=== PATIENT | female | born 1985 | race Caucasian/White ===

== ENCOUNTER 2018-06-29 10:22 | Inpatient (IN) ==
[2018-06-29 11:06] LABS: Bilirubin,Urine Negative (Negative); Blood,Urine Negative (Negative); Color,Urine Yellow (Yellow); Glucose,Urine (UA) Normal (Normal); Ketones,Urine Negative (Negative); Leukocyte Esterase,Urine Moderate (Negative); Nitrite,Urine Negative (Negative); PH,Urine 6.5 pH Units (5.0-8.0); Protein,Urine Negative (Neg-Trace); Specific Gravity,Urine 1.011 (1.010-1.025); Urobilinogen,Urine Normal (Normal)
[2018-06-29 11:08] LABS: Bacteria,Urine Moderate per hpf (None-Few); Hyaline Casts,Urine None Seen per lpf (None-Few); Squamous Epithelial Cell,Urine Many per lpf (None-Few)
[2018-06-29 11:09] LABS: Clarity,Urine Slightly Hazy (Clear)
[2018-06-29 11:14] LABS: Protein/Creatinine Ratio,Urine 0.24 mg/mg (0.00-0.20)
[2018-06-29 11:15] LABS: Amphetamine Screen,Urine Negative ng/mL (Cutoff=1000); Barbiturate Screen,Urine Negative ng/mL (Cutoff=200); Benzodiazepines Screen,Urine Negative ng/mL (Cutoff=200); Cannabinoid Screen,Urine Negative ng/mL (Cutoff = 50); Cocaine Screen,Urine Negative ng/mL (Cutoff= 300); Opiate Screen,Urine Negative ng/mL (Cutoff=300); Phencyclidine Screen,Urine Negative ng/mL (Cutoff=25)
[2018-06-29 11:55] LABS: Basophils % 0.3 %; Eosinophils % 0.4 %; Hematocrit 33.8 % (35.3-44.9); Hemoglobin 11.3 g/dL (11.5-15.4); Immature Granulocytes % 0.4 % (0-4); Lymphocytes # 1.2 K/mcL (0.6-4.6); Lymphocytes % 16.4 %; Mean Corpuscular HGB Conc 33.4 g/dL (31.6-35.5); Mean Corpuscular Hemoglobin 29.8 pg (28.0-33.3); Mean Corpuscular Volume 89.2 fL (83.0-100.0); Mean Platelet Volume 10.9 fL (9.4-12.4); Monocytes # 0.5 K/mcL (0.0-1.3); Monocytes % 6.3 %; Neutrophils # 5.7 K/mcL (1.6-8.9); Platelet Count 159 K/mcL (140-400); Red Blood Count 3.79 M/mcL (3.82-4.97); Red Cell Distribution Width 15.3 % (11.5-14.5); Segmented Neutrophils % 76.2 %
[2018-06-29 12:06] LABS: Alanine Aminotransferase 12 Units/L (7-52); Aspartate Amino Transferase 21 Units/L (13-39); BUN/Creatinine Ratio 19 (6-26); Blood Urea Nitrogen 11 mg/dL (6-20); Lactate Dehydrogenase 173 Units/L (140-271); Uric Acid 4.2 mg/dL (2.3-7.6); eGFR For Non-African Americans > 60 (> 60)
[2018-06-29] MEDS ORDERED: Famotidine 20 MG/2 ML VIAL IVP PRN (13:58)
[2018-06-29] MEDS ORDERED: Ondansetron 4 MG/2 ML VIAL IVP PRN (13:58)
[2018-06-29] MEDS ORDERED: *HR* Nalbuphine 10 MG/ML AMPUL IVP PRN (13:58)
[2018-06-29] MEDS ORDERED: Naloxone 0.4 MG/ML INJ IVP PRN (13:58)
[2018-06-29] MEDS ORDERED: Metoclopramide 10 MG/2 ML VIAL IVP PRN (13:58)
[2018-06-29] MEDS ORDERED: Oxytocin 20 units/ LR 1000 mL 20 UNIT/1,000 ML BAG IVC SCH ×2 (14:00→23:21)
[2018-06-29] MEDS ORDERED: Ringers Solution, Lactated 1,000 ML IVC SCH (14:00)
[2018-06-29] MEDS ORDERED: Acetaminophen 325 MG TABLET PO PRN ×2 (15:15→23:21)
--- NOTE | 2018-06-29 17:44 | Anesthesia Evaluation PreOp ---
Date of Encounter: 06/29/18 Time of Encounter: 17:42 - Past History Planned Operation: DEEP Cardiac History: Denies any Significant Hx Pulmonary History: Denies Any Significant HX MONEY ROOM TELLER History: Denies Any Significant HX Other Medical History: Other (Urinary Retention post delivery with epidurals) Anesthesia History: No Prior Anesthetic Complications, Past Anesthesia : Yes Alcohol Use: none Drug use: none Medications and Allergies Ferrous Sulfate [Iron] 1 tab PO DAILY 06/29/18 [History] Vitamin Tablet 1 tab PO DAILY 06/29/18 [History] Allergy/AdvReac Type Severity Reaction Status Date / Time pistachio nut AdvReac Nausea Verified 06/29/18 14:48 - Meds/Allergy Pre-op Review Medications Reviewed: Yes Allergies Reviewed: Yes Beta Blockers on Current Med List: No Anesthesia Results - Labs 06/29/18 11:00 06/29/18 11:00 Anesthesia Exam O2 Sat Height 1.7 m Weight 75.9 kg Vital Signs Temp 98.5 F 06/29/18 11:00 NPO (# of Hours): 4 Pain Scale: 1 Pain Scale Used: Numeric (1 - 10) - HEENT Pupil (Motor): Pupils equal Mallampati: II Teeth: Normal Oral Opening: Greater than 3 - MONEY ROOM TELLER LOC: Oriented MONEY ROOM TELLER Motor: Normal RUE, Normal LUE, Normal RLE, Normal LLE, Normal Face MONEY ROOM TELLER Sensory: Normal: RUE, LUE, RLE, LLE, Face - Cardiac Rhythm: Regular Murmur: None JVD: No Carotid Bruit: No - Pulmonary Breath Sounds: bilateral Clear Respiratory Effort: Symmetrical Anesthesia Assess/Plan ASA Score: 2 Level of consciousness: Cooperative, Oriented Anesthetic Plan: General, Epidural Autologous Blood: Yes Monitoring Plan: Standard Monitors
[2018-06-29] MEDS ORDERED: Epidural Premix (fent/bupiv) 110 ML EP SCH (17:45)
--- NOTE | 2018-06-29 18:10 | OB/GYN History & Physical ---
Date of Encounter: 06/29/18 Time of Encounter: 12:15 Assessment and Plan (1) 38 weeks gestation of Current visit: Yes Status: Acute (2) Intrauterine Current visit: Yes Status: Acute (3) Intact amniotic membranes during in third trimester Current visit: Yes Status: Acute (4) Mild pre-eclampsia affecting fourth Current visit: Yes Status: Acute Admit to labor and delivery for induction of labor secondary to mild preeclampsia at term Double Mon balloon with 60 mL in each balloon will be placed Start Pitocin and increased per protocol to adequate labor pattern Labs-CBC and clot to hold Continuous electronic monitoring Pain management plan is unknown-states she has had epidurals with her previous 3 deliveries but had problems urinating during the period so she would like to try with no epidural this labor Anticipate vaginal delivery Dr. Chen is the OB on-call and was consulted for the plan for admission (5) Type A blood, Rh negative Current visit: Yes Status: Acute Cord blood will be collected at delivery (6) NST (non-stress test) reactive Current visit: Yes Status: Acute History of Present Illness Chief complaint: mild pre-e HPI: Ms. Hanley is a 32 year old female at 38 weeks 4 days gestation with an estimated date of of 07/09/18 dated by LMP. She presents today for preeclampsia evaluation. She had severe range blood pressures in the office today of 160s over 90s. Throughout her triage and labor and delivery she ran mild range 140s to 150s over 90s to low 100s. She had a negative lab workup. About an hour prior to discharge she developed a headache and blurry vision. After consultation with Dr. Chen and was decided she should be admitted for induction secondary to mild preeclampsia at term. She is followed by Dr. Huston throughout her . records are available electronically and have been reviewed. Labs: A- GBS- Hep B- HIV- T. Palladium- GC/CL- Rubella immune Varicella immune Past Med Surg Social Fam HX - Past Medical History Medical history: other Additional medical history: bladder retention after all past Psychiatric history: no psych history - Past Surgical History Additional surgical history: breast augmentation - Social History Smoking Status: Never smoker Smokeless Tobacco Status: No Alcohol use: none Drug use: none - Family History Mother Living Status: Still Living Hx Family Cardiac Disorders: No Hx Family Respiratory Disorders: No Hx Family Cancer: No Hx Family GI Disorders: No Hx Family Genitourinary Disorders: No Hx Family Endocrine Disorder: No Hx Family Musculoskeletal Disorders: No Hx Family Neuromuscular Disorders: No Hx Family Neurologic Disorders: No Hx Family HEENT Disorders: No Hx Family Autoimmune Disorders: No Hx Family Reproductive Disorders: No Hx Family Psychosocial Disorders: No Hx Family Medical Disorders: No Obstetrical History - Pregnancies : 4 Para: 3 Term: 3 (# 1: full term, vaginal delivery [facility] female 6lbs 13oz.; # 2: normal spontaneous vaginal delivery (), [facility], 3-20-10 Female 7lbs 12oz.; # 3 03/30/2013, VAGINAL, FEMALE, 7#2.) : 0 Ab's: 0 Livin Medications and Allergies Ferrous Sulfate [Iron] 1 tab PO DAILY 06/29/18 [History] Vitamin Tablet 1 tab PO DAILY 06/29/18 [History] Allergy/AdvReac Type Severity Reaction Status Date / Time pistachio nut AdvReac Nausea Verified 06/29/18 14:48 Review of System OB All systems PM: reviewed and no additional remarkable complaints except as stated Exam - Vital Signs Vital signs: Initial Vital Signs Temp 98.5 F 06/29/18 11:00 - Constitutional Constitutional: well developed, well nourished, no acute distress, average body habitus - HEENT HEENT: Normocephaly, Mucus Membranes Moist - Neck Neck exam: full ROM - Lungs Respiratory exam: CTAB - Cardiovascular Cardiovascular exam: RRR, +S1, +S2 - Breasts Breast: bilateral: normal - Abdomen Abdomen: Present: bowel sounds normal, gravid, non tender - Extremities Extremities exam: full ROM, normal capillary refill, normal inspection, radial pulses palpable and symmetrical - Vulva Vulva: bilateral: normal - Vagina Vagina: Present: normal moisture - Cervix Dilation: 3 Effacement: 70 Station: -2 - Uterus Uterus exam: Present: normal size, normal contour - Adnexa Adnexa: bilateral: normal - Anus/Rectum Anus/Rectum: Present: normal perianal skin Results Result Diagrams: 06/29/18 11:00 06/29/18 11:00 Abnormal lab results RBC 3.79 M/mcL (3.82-4.97) L 06/29/18 11:00 Hgb 11.3 g/dL (11.5-15.4) L 06/29/18 11:00 Hct 33.8 % (35.3-44.9) L 06/29/18 11:00 RDW 15.3 % (11.5-14.5) H 06/29/18 11:00 Creatinine 0.59 mg/dL (0.60-1.20) L 06/29/18 11:00 Ur Leukocyte Esterase Moderate (Negative) H 06/29/18 10:53 Urine Microscopic RBC 3-5 per hpf (0-3) H 06/29/18 10:53 Urine Microscopic WBC 5-15 per hpf (0-3) H 06/29/18 10:53 Ur Squamous Epith Cells Many per lpf (None-Few) H 06/29/18 10:53 Urine Bacteria Moderate per hpf (None-Few) H 06/29/18 10:53 Protein/Creatinin Ratio 0.24 mg/mg (0.00-0.20) H 06/29/18 10:53 All other labs normal. - VTE Reasons for not Prescribing Prophylaxis: Treatment not Indicated - Low risk for VTE
--- NOTE | 2018-06-29 18:20 | OB Labor Progress Note ---
Date of Encounter: 06/29/18 Time of Encounter: 14:40 Labor Progress Note - Subjective Subjective: Patient reports contractions are manageable - Cervix Cervix: 3/70/-2 - Heart Tones Heart Tones: Baseline 140 Moderate variability Accelerations present 15 x 15 No decelerations FHR category I - Jewell Jewell: Rare and palpate mild - Interventions Interventions: SVE Double Mon balloon catheter placed with 60 mL per balloon - Plan Physician notified: No Plan: Continue induction management Start Pitocin and increased per protocol to adequate labor pattern Patient may use birthing ball either in bed or at the side of the bed Anticipate vaginal delivery
--- NOTE | 2018-06-29 18:25 | OB Labor Progress Note ---
Date of Encounter: 06/29/18 Time of Encounter: 17:50 Labor Progress Note - Subjective Subjective: Patient reports pain with contractions at 7 out of 10 and states they are manageable - Cervix Cervix: 8/70/-2 - Heart Tones Heart Tones: FHR baseline 125 Moderate variability Accelerations present 15 x 15 No decelerations FHR category I - Christie Christie: Contractions every 3-4 minutes and palpate moderate - Interventions Interventions: SVE Mon catheter deflated and removed AROM for moderate amount of clear fluid - Plan Physician notified: No Plan: Continue induction management Continue Pitocin augmentation Position changes as needed May have epidural request Anticipate vaginal delivery
[2018-06-29] MEDS ORDERED: *HR* Oxytocin 10 UNIT/ML VIAL IM ONE (19:52)
--- NOTE | 2018-06-29 21:30 | OB/GYN Procedure Note ---
Delivery - Delivery Date: 06/29/18 Provider: Marni Valentino Intrapartum events: none Delivery induction: oxytocin, freeman Delivery augmentation: rupture of membranes Delivery monitor: external FHT, external uterine Anesthesia: none Quantitated Blood Loss: 1,200 - Infant (s) Infant A Delivery Date: 06/29/18 Delivery Time: 19:45 Presentation: vertex Position: REY Route of delivery: Gender: Female Viability: Viable Pounds: 8 Ounces: 5 Weight Gram: 3.765 kg at 1 minute: 8 at 5 mins: 9 Shoulder Dystocia: not encountered Specimens collected: cord blood Placenta: spontaneous, uterine exploration Cord: nuchal cord, 3 umbilical vessels, nuchal reduced - Repair Episiotomy: none Laceration Description: None - Complications Delivery complications: hemorrhage (immediately following third stage - pitocin, methergine, and cytotec given) Delivery comments: This is a 32 year old G4 now [id number] who was admitted for induction of labor secondary to mild preeclampsia at term. She progressed Pitocin and Freeman balloon induction followed by AROM for augmentation to the second stage of labor. She pushed for about an hour. She delivered a viable, female , REY "Sonu" over an intact perineum. A nuchal cord was identified. The nuchal was easily reduced over the 's head prior to delivery of the shoulders. A shoulder dystocia was not encountered. The infant was placed on the maternal abdomen and allowed to transition spontaneously. The cord was double clamped by boil off machine operator cloth after pulsations ceased and cut by FOB. scores were 8 at 1 minute and 9 at 5 minutes. The infant weighed 8 lbs. 5 oz. (3765g). The placented delivered spontaneouly, intact (Soto) with a 3-vessel cord. Inspection revealed an intact perineum. The uterus was boggy with active bleeding. She was given 10 mg Pitocin IM as her IV had gone bad followed by 0.2 mg Methergine IM. Bimanual compression was done without relief from bleeding. At this time Dr. Chen was called into the room for consultation. The cervix was inspected for lacerations and found to be intact. She was then additionally given one thousand micrograms of Cytotec rectally. Shortly after this the bleeding began to slow down and her uterus became firm.. EBL was 1200 mL. Placenta and umbilical artery blood gases were not sent. Mom and baby are skin to skin following delivery. - Disposition Mom disposition: stable in LDR disposition: stable in LDR
[2018-06-29] MEDS ORDERED: Sennosides 8.6 MG TABLET PO PRN (23:21)
[2018-06-29] MEDS ORDERED: Rho Immune Globulin 1,500 UNIT SYRINGE IM PRN (23:21)
[2018-06-30 04:18] LABS: Hematocrit 32.5 % (35.3-44.9); Hemoglobin 10.7 g/dL (11.5-15.4); Mean Corpuscular HGB Conc 32.9 g/dL (31.6-35.5); Mean Corpuscular Hemoglobin 29.5 pg (28.0-33.3); Mean Corpuscular Volume 89.5 fL (83.0-100.0); Mean Platelet Volume 10.5 fL (9.4-12.4); Platelet Count 158 K/mcL (140-400); Red Blood Count 3.63 M/mcL (3.82-4.97); Red Cell Distribution Width 15.3 % (11.5-14.5); Segmented Neutrophils % 81.5 %
[2018-06-30 04:19] LABS: Basophils % 0.2 %; Eosinophils % 0.1 %; Immature Granulocytes % 0.4 % (0-4); Lymphocytes # 1.8 K/mcL (0.6-4.6); Lymphocytes % 11.5 %; Monocytes % 6.3 %; Neutrophils # 12.9 K/mcL (1.6-8.9)
[2018-06-30] MEDS: Prenatal Vit/FA 1 EACH TABLET PO SCH (08:01)
[2018-06-30] MEDS: Ibuprofen 600 MG TABLET PO PRN (10:53)
--- NOTE | 2018-06-30 12:07 | OB/GYN Progress Note ---
Date of Encounter: 06/30/18 Time of Encounter: 11:37 - Assessment and Plan (1) Status post vaginal delivery Current Visit: Yes Status: Acute PPD #1 Meeting expected milestones Continue current management Possible discharge tomorrow (2) Pre-eclampsia Current Visit: Yes Status: Acute Continue current management PIH labs negative No new signs or symptoms Discused with Dr. Hawk Qualifiers: Trimester: third trimester Qualified Code(s): O14.93 - Unspecified pre- eclampsia, third trimester (3) anemia Current Visit: Yes Status: Acute Hgb 10.7 today from 11.3 Continue daily Iron supplementation Subjective - Subjective Principal diagnosis: s/p vaginal delivery Interval history: Patient doing well. Mild abdominal discomfort, pain well controlled with p rescribed medication. Vaginal bleeding improving, no large clots. Ambulating without difficulty. Tolerating diet. Passing gas, no BM yet, voiding normally. . Patient reports: appetite normal, voiding normally, pain well controlled, ambulating normally : in NICU (dt requiring oxygen), nursing well Objective - Latest Vital Signs Latest vital signs: Vital Signs Temp Pulse Resp BP Pulse Ox 06/30/18 07:30 98.5 F 99 16 162/90 06/30/18 01:00 98.8 F 74 16 133/90 98 06/30/18 00:00 98.5 F 86 16 158/99 99 06/29/18 23:25 98.8 F 88 16 129/85 97 Intake and Output 06/29/18 06/30/18 06/30/18 23:59 07:59 15:59 Output Total 1400 / 1400 400 / 400 900 / 900 Balance -1400 / -1400 -400 / -400 -900 / -900 Output: Urine 200 / 200 400 / 400 900 / 900 Estimated Blood Loss 1200 / 1200 Other: Stool Characteristics Normal for Patient - Exam Lungs: bilateral: normal Chest: Normal S1, Normal S2 Extremities: Present: normal. Absent: tenderness Abdomen: Present: soft, tenderness (mild discomfort with palpation). Absent: distention Uterus: Present: normal, firm Uterus Position: 2 Fingers Below Umbilicus - Labs Labs: Laboratory Results - last 24 hr 06/29/18 06/29/18 06/30/18 11:00 11:00 04:08 WBC 7.5 15.8 H D RBC 3.79 L 3.63 L Hgb 11.3 L 10.7 L Hct 33.8 L 32.5 L MCV 89.2 89.5 MCH 29.8 29.5 MCHC 33.4 32.9 RDW 15.3 H 15.3 H Plt Count 159 158 MPV 10.9 10.5 Immature Gran % 0.4 0.4 Seg Neutrophils % 76.2 81.5 Lymphocytes % 16.4 11.5 Monocytes % 6.3 6.3 Eosinophils % 0.4 0.1 Basophils % 0.3 0.2 Neutrophils # 5.7 12.9 H Lymphocytes # 1.2 1.8 Monocytes # 0.5 1.0 Eosinophils # 0.0 0.0 Basophils # 0.0 0.0 BUN 11 Creatinine 0.59 L Est GFR ( Amer) > 60 Est GFR (Non-Af Amer) > 60 BUN/Creatinine Ratio 19 Uric Acid 4.2 AST 21 ALT 12 Lactate Dehydrogenase 173 Baby's Blood Type Mother's Blood Type 06/30/18 04:08 WBC RBC Hgb Hct MCV MCH MCHC RDW Plt Count MPV Immature Gran % Seg Neutrophils % Lymphocytes % Monocytes % Eosinophils % Basophils % Neutrophils # Lymphocytes # Monocytes # Eosinophils # Basophils # BUN Creatinine Est GFR ( Amer) Est GFR (Non-Af Amer) BUN/Creatinine Ratio Uric Acid AST ALT Lactate Dehydrogenase Baby's Blood Type A RH POSITIVE Mother's Blood Type A RH NEGATIVE
[2018-07-01] MEDS: Prenatal Vit/FA 1 EACH TABLET PO SCH (08:32)
[2018-07-01 08:55] VITALS: BP 143/87
--- NOTE | 2018-07-01 11:40 | Discharge Summary ---
Date of Encounter: 07/01/18 Time of Encounter: 11:43 - Discharge Diagnosis (1) Status post vaginal delivery Priority: Primary Status: Acute Comments: Meeting expected milestones. Pain well controlled without medications. Tolerat ing diet. Ambulating well. Minimal vaginally bleeding. well. Discharge today. Patient will be guesting d/t baby awaiting culture results. (2) Severe pre-eclampsia affecting childbirth Priority: Secondary Status: Acute Comments: elevated BP 160s/100s in the office Developed DICKSON and visual changes during evaluation Admitted for IOL at term (3) anemia Priority: Secondary Status: Acute Comments: Continue QD iron supplementation (4) Breast feeding status of mother Priority: Secondary Status: Acute - Discharge Medications Prescriptions: New Breast Pump 1 each MC Q2H #1 each Ibuprofen [Motrin] 600 mg PO Q6HR PRN #60 tablet PRN Reason: Cramping Dibucaine [Nupercainal] 56.7 gm RC PRN PRN #1 oint...g. PRN Reason: Hemorrhoids Continued Vitamin Tablet 1 tab PO DAILY Ferrous Sulfate [Iron] 1 tab PO DAILY #30 tablet Home Medications: Vitamin Tablet 1 tab PO DAILY 06/29/18 [History] Breast Pump 1 each MC Q2H #1 each 07/01/18 [Rx] Dibucaine [Nupercainal] 56.7 gm RC PRN PRN #1 oint...g. 07/01/18 [Rx] Ferrous Sulfate [Iron] 1 tab PO DAILY #30 tablet 07/01/18 [Rx] Ibuprofen [Motrin] 600 mg PO Q6HR PRN #60 tablet 07/01/18 [Rx] Allergies/Adverse Reactions: Allergy/AdvReac Type Severity Reaction Status Date / Time pistachio nut AdvReac Nausea Verified 06/29/18 14:48 Data Procedures and tests throughout hospitalization: Laboratory Tests 06/29/18 06/29/18 06/29/18 10:53 10:53 10:53 WBC RBC Hgb Hct MCV MCH MCHC RDW Plt Count MPV Immature Gran % Seg Neutrophils % Lymphocytes % Monocytes % Eosinophils % Basophils % Neutrophils # Lymphocytes # Monocytes # Eosinophils # Basophils # BUN Creatinine Est GFR ( Amer) Est GFR (Non-Af Amer) BUN/Creatinine Ratio Uric Acid AST ALT Lactate Dehydrogenase Urine Color Yellow Urine Clarity Slightly Hazy Urine pH 6.5 Ur Specific Chavies 1.011 Urine Protein Negative Urine Glucose (UA) Normal Urine Ketones Negative Urine Blood Negative Urine Nitrite Negative Urine Bilirubin Negative Urine Urobilinogen Normal Ur Leukocyte Esterase Moderate H Urine Microscopic RBC 3-5 H Urine Microscopic WBC 5-15 H Ur Squamous Epith Cells Many H Urine Bacteria Moderate H Hyaline Casts None Seen Urine Creatinine 38 Protein/Creatinin Ratio 0.24 H Urine Total Protein 9 Urine Opiates Screen Negative Ur Barbiturates Screen Negative Ur Phencyclidine Scrn Negative Ur Amphetamines Screen Negative U Benzodiazepines Scrn Negative Urine Cocaine Screen Negative U Marijuana (THC) Screen Negative Ur Drug Screen Interp See Below Screen Baby's Blood Type Mother's Blood Type Rhogam Indicated Rhogam Req for Mother 06/29/18 06/29/18 06/30/18 11:00 11:00 04:08 WBC 7.5 15.8 H D RBC 3.79 L 3.63 L Hgb 11.3 L 10.7 L Hct 33.8 L 32.5 L MCV 89.2 89.5 MCH 29.8 29.5 MCHC 33.4 32.9 RDW 15.3 H 15.3 H Plt Count 159 158 MPV 10.9 10.5 Immature Gran % 0.4 0.4 Seg Neutrophils % 76.2 81.5 Lymphocytes % 16.4 11.5 Monocytes % 6.3 6.3 Eosinophils % 0.4 0.1 Basophils % 0.3 0.2 Neutrophils # 5.7 12.9 H Lymphocytes # 1.2 1.8 Monocytes # 0.5 1.0 Eosinophils # 0.0 0.0 Basophils # 0.0 0.0 BUN 11 Creatinine 0.59 L Est GFR ( Amer) > 60 Est GFR (Non-Af Amer) > 60 BUN/Creatinine Ratio 19 Uric Acid 4.2 AST 21 ALT 12 Lactate Dehydrogenase 173 Urine Color Urine Clarity Urine pH Ur Specific Chavies Urine Protein Urine Glucose (UA) Urine Ketones Urine Blood Urine Nitrite Urine Bilirubin Urine Urobilinogen Ur Leukocyte Esterase Urine Microscopic RBC Urine Microscopic WBC Ur Squamous Epith Cells Urine Bacteria Hyaline Casts Urine Creatinine Protein/Creatinin Ratio Urine Total Protein Urine Opiates Screen Ur Barbiturates Screen Ur Phencyclidine Scrn Ur Amphetamines Screen U Benzodiazepines Scrn Urine Cocaine Screen U Marijuana (THC) Screen Ur Drug Screen Interp Screen Baby's Blood Type Mother's Blood Type Rhogam Indicated Rhogam Req for Mother 06/30/18 04:08 WBC RBC Hgb Hct MCV MCH MCHC RDW Plt Count MPV Immature Gran % Seg Neutrophils % Lymphocytes % Monocytes % Eosinophils % Basophils % Neutrophils # Lymphocytes # Monocytes # Eosinophils # Basophils # BUN Creatinine Est GFR ( Amer) Est GFR (Non-Af Amer) BUN/Creatinine Ratio Uric Acid AST ALT Lactate Dehydrogenase Urine Color Urine Clarity Urine pH Ur Specific Chavies Urine Protein Urine Glucose (UA) Urine Ketones Urine Blood Urine Nitrite Urine Bilirubin Urine Urobilinogen Ur Leukocyte Esterase Urine Microscopic RBC Urine Microscopic WBC Ur Squamous Epith Cells Urine Bacteria Hyaline Casts Urine Creatinine Protein/Creatinin Ratio Urine Total Protein Urine Opiates Screen Ur Barbiturates Screen Ur Phencyclidine Scrn Ur Amphetamines Screen U Benzodiazepines Scrn Urine Cocaine Screen U Marijuana (THC) Screen Ur Drug Screen Interp Screen NEGATIVE Baby's Blood Type A RH POSITIVE Mother's Blood Type A RH NEGATIVE Rhogam Indicated YES Rhogam Req for Mother 1 Labs on day of discharge: Labs from last 24 hours 06/30/18 04:08 Screen NEGATIVE Rhogam Indicated YES Rhogam Req for Mother 1 Date of admission: 06/29/18 10:22 Primary care physician: PCP NONE Consults: 06/29/18 23:21 Consult to Child Care Provider [CONS] Routine Comment: Vaginal delivery, consult needed Discharging clinician: Johana Caballero Anticipated date of discharge: 07/01/18 - Patient Status Disposition: Home, Self-Care Condition: Good Functional capacity at discharge: independent ambulation Overall status at discharge: patient is progressing back to baseline - Discharge Instructions Follow Up With: NONE,PCP [Primary Care Provider] - Additional Instructions: Contact [phone] to establish with a PCP. Follow up on blood pressure as discussed. - Diet and Activity Activity: increase activity as tolerated Diet: advance to your usual diet Hospital Course [employer] Hospital course: - Delivery Date: 06/29/18 Provider: Marni Valentino Intrapartum events: none Delivery induction: oxytocin, freeman Delivery augmentation: rupture of membranes Delivery monitor: external FHT, external uterine Anesthesia: none Quantitated Blood Loss: 1,200 - (s) Infant A Delivery Date: 06/29/18 Delivery Time: 19:45 Presentation: vertex Position: REY Route of delivery: Gender: Female Viability: Viable Pounds: 8 Ounces: 5 Weight Gram: 3.765 kg at 1 minute: 8 at 5 mins: 9 Shoulder Dystocia: not encountered Specimens collected: cord blood Placenta: spontaneous, uterine exploration Cord: nuchal cord, 3 umbilical vessels, nuchal reduced - Repair Episiotomy: none Laceration Description: None - Complications Delivery complications: hemorrhage (immediately following third stage - pitocin, methergine, and cytotec given) Time Attestation: Total time spent providing and/or coordinating discharge services: Exam - Constitutional Vitals: Temp Pulse Resp BP Pulse Ox 97.7 F 90 14 143/87 97 07/01/18 08:53 07/01/18 08:53 07/01/18 08:53 07/01/18 08:53 07/01/18 08:53 General appearance IM: A&O X 3, pleasant, no acute distress - Respiratory Respiratory exam: Present: CTAB. Absent: respiratory distress, rhonchi, wheezes - Cardiovascular Cardiovascular exam IM: Present: RRR, +S1, +S2 - GI/Abdominal GI/Abdominal exam IM: normal bowel sounds, soft - Uterine Tone: Firm Uterus Position: 3 Fingers Below Umbilicus - Extremities Exam Extremities exam IM: Absent: joint swelling, pedal edema - Neurological Exam Neurological exam: no focal deficits - VTE Reasons for not Prescribing Prophylaxis: Treatment not Indicated - Low risk for VTE
[2018-07-01] MEDS: Ibuprofen 600 MG TABLET PO PRN (12:15)
== END 2018-07-01 13:07 | disposition home or self-care (01) | DRG 806 ==
LOC: 1NENULAB → OBSVTOIN 10:22 → 1NENUOBS 23:22
PROVIDERS: ADMIT Advanced Practice Midwife; ATTEND Advanced Practice Midwife